=== PATIENT | female | born 1960 | race Caucasian/White ===

== ENCOUNTER 2021-04-15 10:55 | Day surgery (SDC) | payer OTHER ==
[2021-04-10 10:03] VITALS: BMI 25.4
[2021-04-15 12:06] VITALS: TEMP 97.8
[2021-04-15 12:28] VITALS: BP 116/74; PULSE 89
== END 2021-04-15 12:43 | disposition home or self-care (01) ==
LOC: FASU-ENDO 10:55
PROVIDERS: ATTEND Internal Medicine Gastroenterology
PROC: 0DJD8ZZ Inspection of Lower Intestinal Tract, Via Natural or Artificial Opening Endoscopic (ICD-10-PCS; principal; 2021-04-15 11:31)
DX: Z12.11 Encounter for screening for malignant neoplasm of colon (principal); K64.1 Second degree hemorrhoids; K57.30 Diverticulosis of large intestine without perforation or abscess without bleeding; I10 Essential (primary) hypertension

== ENCOUNTER 2023-05-10 17:00 | Inpatient (IN) | payer BC, OTHER ==
[2023-05-10 18:18] LABS: BASO % 1.2 % (0-2.0); EOS % 2.6 % (0-4.5); HEMATOCRIT 18.6 % (32.4-45.2); LYMPH % 13.6 % (8-40); MCH 30.2 pg (25.7-33.7); MCHC 33.3 g/dl (32.0-36.0); MEAN CELL VOLUME 90.8 fl (80-96); MONO % 7.2 % (3.8-10.2); NEUT % 75.4 % (42.8-82.8); PLATELET COUNT 224 10^3/uL (134-434); RBC 2.05 M/mm3 (3.60-5.2); RDW 13.3 % (11.6-15.6); WHITE BLOOD COUNT 4.8 K/mm3 (4.0-10.0)
[2023-05-10 18:26] LABS: INR 1.04 (0.83-1.09); PROTHROMBIN TIME (PATIENT) 12.1 SEC (9.7-13.0)
[2023-05-10 18:26] LABS: HEMOGLOBIN 6.2 GM/dL (10.7-15.3)
[2023-05-10 18:29] LABS: ACTIVATED PTT 32.5 SECONDS (25.2-36.5)
[2023-05-10 18:48] LABS: CHLORIDE 96 mmol/L (98-107); SODIUM 131 mmol/L (136-145)
[2023-05-10 18:51] LABS: ANION GAP 16 mmol/L (4-13); CALCIUM 9.1 mg/dL (8.5-10.1); CO2 18 mmol/L (21-32); GLUCOSE,RANDOM 126 mg/dL (74-106); MAGNESIUM 3.1 mg/dL (1.8-2.4)
[2023-05-10 18:54] LABS: PHOSPHOROUS 8.2 mg/dL (2.5-4.9); SGOT/AST 29 U/L (15-37); SGPT/ALT 36 U/L (13-61)
[2023-05-10 18:56] LABS: BILIRUBIN,TOTAL 0.7 mg/dL (0.2-1); TOT PROT 7.4 g/dl (6.4-8.2)
[2023-05-10 18:57] LABS: ALK PHOS 81 U/L (45-117)
[2023-05-10 19:49] LABS: BLOOD UREA NITROGEN 130.2 mg/dL (7-18); CREATININE 13.8 mg/dL (0.55-1.3)
[2023-05-10 20:48] LABS: CHLORIDE 97 mmol/L (98-107); SODIUM 132 mmol/L (136-145)
[2023-05-10 20:49] LABS: CALCIUM 8.7 mg/dL (8.5-10.1)
[2023-05-10 20:50] LABS: ANION GAP 15 mmol/L (4-13); CO2 20 mmol/L (21-32); GLUCOSE,RANDOM 101 mg/dL (74-106)
[2023-05-10 20:55] LABS: BLOOD UREA NITROGEN 134.6 mg/dL (7-18); CREATININE 14.1 mg/dL (0.55-1.3)
[2023-05-10] MEDS ORDERED: hydrALAZINE HCL 20 MG/ML VIAL IVPUSH ONE (20:58)
[2023-05-10 21:02] LABS: EPI CELLS 2 /uL (0-25.1); HYALINE CASTS 0 /uL (0-3.1); URINE APPEARANCE CLEAR; URINE BACTERIA 3 /uL (0-1359); URINE BILIRUBIN NEGATIVE (NEGATIVE); URINE COLOR YELLOW; URINE GLUCOSE (UA) TRACE (NEGATIVE); URINE KETONE NEGATIVE (NEGATIVE); URINE LEUK ESTERASE NEGATIVE (NEGATIVE); URINE NITRITE NEGATIVE (NEGATIVE); URINE PROTEIN 3+ (NEGATIVE); URINE RBC 44 /uL (0-23.9); URINE UROBILINOGEN 0.2 mg/dL (0.2-1.0); URINE WBC 3 /uL (0-25.8)
[2023-05-10] MEDS: HEPARIN NA (PORCINE) 5,000 UNITS/ML 1ML VIAL SQ SCH (21:26)
[2023-05-10] MEDS: CHLORHEXIDINE GLUCONATE 4% CLEANSER FOR DECOLONIZATION TP SCH (21:27)
[2023-05-10] MEDS: hydrALAZINE HCL 25 MG TABLET (FP) PO SCH (21:27)
[2023-05-10] MEDS: MUPIROCIN 2% TOPICAL OINTMENT FOR DECOLONIZATION NS SCH (21:27)
[2023-05-10] MEDS ORDERED: ACETAMINOPHEN 325 MG TABLET (FP) PO PRN (22:58)
[2023-05-11] MEDS ORDERED: MELATONIN 5 MG TABLETS PO ONE (01:06)
[2023-05-11 06:14] LABS: BASO % 1.1 % (0-2.0); EOS % 2.7 % (0-4.5); HEMATOCRIT 20.6 % (32.4-45.2); LYMPH % 14.6 % (8-40); MCH 30.4 pg (25.7-33.7); MCHC 33.7 g/dl (32.0-36.0); MEAN CELL VOLUME 90.3 fl (80-96); MEAN PLT VOLUME 8.5 fl (7.5-11.1); MONO % 8.5 % (3.8-10.2); NEUT % 73.1 % (42.8-82.8); PLATELET COUNT 199 10^3/uL (134-434); RBC 2.28 M/mm3 (3.60-5.2); RDW 13.2 % (11.6-15.6); WHITE BLOOD COUNT 4.8 K/mm3 (4.0-10.0)
[2023-05-11 06:24] LABS: HEMOGLOBIN 6.9 GM/dL (10.7-15.3); INR 1.06 (0.83-1.09); PROTHROMBIN TIME (PATIENT) 12.3 SEC (9.7-13.0)
[2023-05-11] MEDS ORDERED: SODIUM CHLORIDE 250 ML IV PRN (06:24)
[2023-05-11] MEDS: hydrALAZINE HCL 25 MG TABLET (FP) PO SCH ×3 (06:25→21:32)
[2023-05-11 06:27] LABS: ACTIVATED PTT 32.8 SECONDS (25.2-36.5); CHLORIDE 97 mmol/L (98-107); POTASSIUM 4.9 mmol/L (3.5-5.1); SODIUM 132 mmol/L (136-145)
[2023-05-11 06:29] LABS: CALCIUM 8.9 mg/dL (8.5-10.1)
[2023-05-11 06:30] LABS: ALBUMIN 3.7 g/dl (3.4-5.0); ANION GAP 17 mmol/L (4-13); CO2 18 mmol/L (21-32); GLUCOSE,RANDOM 98 mg/dL (74-106); MAGNESIUM 2.9 mg/dL (1.8-2.4)
[2023-05-11] MEDS ORDERED: guaiFENesin 200 MG/10 ML 10 ML UNIT-DOSE CUPS PO PRN (06:31)
[2023-05-11 06:32] LABS: SGPT/ALT 27 U/L (13-61)
[2023-05-11 06:33] LABS: PHOSPHOROUS 8.2 mg/dL (2.5-4.9); SGOT/AST 11 U/L (15-37)
[2023-05-11 06:34] LABS: BILIRUBIN,TOTAL 0.7 mg/dL (0.2-1); TOT PROT 6.5 g/dl (6.4-8.2)
[2023-05-11 06:35] LABS: ALK PHOS 78 U/L (45-117)
[2023-05-11 06:36] LABS: BLOOD UREA NITROGEN 132.2 mg/dL (7-18); CREATININE 13.9 mg/dL (0.55-1.3)
[2023-05-11] MEDS ORDERED: LOSARTAN POTASSIUM 25 MG TABLET PO ONE ×2 (08:16)
[2023-05-11] MEDS ORDERED: FUROSEMIDE 40 MG/4 ML INJECTABLE VIAL IVPUSH ONE (08:20)
[2023-05-11] MEDS ORDERED: guaiFENesin/D-METHORPHAN HB 10 ML UNIT-DOSE CUPS PO PRN (08:28)
[2023-05-11] MEDS: MUPIROCIN 2% TOPICAL OINTMENT FOR DECOLONIZATION NS SCH ×2 (10:10→21:33)
[2023-05-11] MEDS ORDERED: MIDAZOLAM HCL 2 MG/2 ML SINGLE DOSE VIAL IVPUSH ONE (10:56)
[2023-05-11] MEDS ORDERED: FENTANYL CITRATE/PF 50 MCG/ML VIAL IVPUSH ONE (11:00)
[2023-05-11] MEDS: HEPARIN NA (PORCINE) 5,000 UNITS/ML 1ML VIAL SQ SCH ×2 (12:25→21:31)
[2023-05-11] MEDS ORDERED: ACETAMINOPHEN 325 MG TABLET (FP) PO PRN (13:20)
[2023-05-11] MEDS ORDERED: ACETAMINOPHEN 1000 MG/100 ML BAG IVPB ONE (15:13)
[2023-05-11] MEDS: SEVELAMER CARBONATE 800 MG TAB (FP) PO SCH (17:51)
[2023-05-11] MEDS: CHLORHEXIDINE GLUCONATE 4% CLEANSER FOR DECOLONIZATION TP SCH (21:33)
[2023-05-12] MEDS: hydrALAZINE HCL 25 MG TABLET (FP) PO SCH ×3 (06:31→21:06)
[2023-05-12 07:03] LABS: HEMATOCRIT 24.3 % (32.4-45.2); HEMOGLOBIN 8.2 GM/dL (10.7-15.3); MCH 30.1 pg (25.7-33.7); MCHC 33.7 g/dl (32.0-36.0); MEAN CELL VOLUME 89.4 fl (80-96); MEAN PLT VOLUME 8.8 fl (7.5-11.1); PLATELET COUNT 176 10^3/uL (134-434); RBC 2.72 M/mm3 (3.60-5.2); RDW 13.5 % (11.6-15.6); WHITE BLOOD COUNT 4.7 K/mm3 (4.0-10.0)
[2023-05-12 07:16] LABS: CHLORIDE 99 mmol/L (98-107); POTASSIUM 4.1 mmol/L (3.5-5.1); SODIUM 136 mmol/L (136-145)
[2023-05-12 07:26] LABS: CALCIUM 8.2 mg/dL (8.5-10.1)
[2023-05-12 07:27] LABS: ALBUMIN 3.4 g/dl (3.4-5.0); ANION GAP 11 mmol/L (4-13); CO2 26 mmol/L (21-32); GLUCOSE,RANDOM 86 mg/dL (74-106); MAGNESIUM 2.5 mg/dL (1.8-2.4)
[2023-05-12 07:30] LABS: PHOSPHOROUS 6.6 mg/dL (2.5-4.9)
[2023-05-12 07:31] LABS: BILIRUBIN,TOTAL 0.5 mg/dL (0.2-1)
[2023-05-12 07:32] LABS: ALK PHOS 85 U/L (45-117)
[2023-05-12 07:33] LABS: SGOT/AST 13 U/L (15-37); SGPT/ALT 27 U/L (13-61)
[2023-05-12 07:38] LABS: CREATININE 9.4 mg/dL (0.55-1.3)
[2023-05-12] MEDS ORDERED: hydrALAZINE HCL 20 MG/ML VIAL IVPUSH ONE (08:17)
[2023-05-12] MEDS ORDERED: hydrALAZINE HCL 20 MG/ML VIAL ONE (08:27)
[2023-05-12] MEDS: SEVELAMER CARBONATE 800 MG TAB (FP) PO SCH ×3 (09:11→18:07)
[2023-05-12] MEDS ORDERED: ACETAMINOPHEN 1000 MG/100 ML BAG IVPB ONE (10:25)
[2023-05-12] MEDS ORDERED: ACETAMINOPHEN INJECTION 100 ML IVPB ONE (10:26)
[2023-05-12] MEDS ORDERED: ceFAZolin SODIUM 1 GM VIAL IVPB ONE ×2 (10:31→12:07)
[2023-05-12] MEDS ORDERED: HEPARIN NA (PORCINE) 5,000 UNITS/ML 1ML VIAL SQ ONE ×2 (10:33→12:10)
[2023-05-12] MEDS: MUPIROCIN 2% TOPICAL OINTMENT FOR DECOLONIZATION NS SCH ×2 (10:35→21:07)
[2023-05-12] MEDS ORDERED: LIDOCAINE HCL 1%, 10 MG/ML (20ML VIAL) ONE (11:21)
[2023-05-12] MEDS ORDERED: HEPARIN NA (PORCINE) 5,000 UNITS/ML 1ML VIAL ONE (11:30)
[2023-05-12] MEDS ORDERED: ONDANSETRON 4 MG/2 ML VIAL IVPUSH PRN (11:47)
[2023-05-12] MEDS ORDERED: MIDAZOLAM HCL 2 MG/2 ML SINGLE DOSE VIAL ONE (11:54)
[2023-05-12] MEDS ORDERED: FENTANYL CITRATE/PF 50 MCG/ML VIAL ONE ×2 (11:54→12:12)
[2023-05-12] MEDS ORDERED: LACTATED RINGERS SOLUTION 1,000 ML IV SCH (12:00)
[2023-05-12] MEDS ORDERED: ceFAZolin SODIUM 1 GM VIAL ONE (12:07)
[2023-05-12] MEDS ORDERED: LIDOCAINE HCL 1%, 10 MG/ML (20ML VIAL) INF ONE (12:09)
[2023-05-12] MEDS: HEPARIN NA (PORCINE) 5,000 UNITS/ML 1ML VIAL SQ SCH ×2 (12:45→21:07)
[2023-05-12 14:50] VITALS: BMI 24.0
[2023-05-12] MEDS ORDERED: SODIUM CHLORIDE 250 ML IV PRN (16:20)
[2023-05-12] MEDS: oxyCODONE HCL 5 MG TABLET PO PRN (21:06)
[2023-05-12] MEDS: CHLORHEXIDINE GLUCONATE 4% CLEANSER FOR DECOLONIZATION TP SCH (21:07)
[2023-05-13] MEDS: hydrALAZINE HCL 25 MG TABLET (FP) PO SCH ×3 (05:25→22:26)
[2023-05-13] MEDS: oxyCODONE HCL 5 MG TABLET PO PRN (05:27)
[2023-05-13] MEDS ORDERED: oxyCODONE HCL 5 MG TABLET PO PRN (07:21)
[2023-05-13] MEDS ORDERED: SODIUM CHLORIDE 250 ML IV PRN (07:21)
[2023-05-13] MEDS ORDERED: guaiFENesin/D-METHORPHAN HB 10 ML UNIT-DOSE CUPS PO PRN (07:21)
[2023-05-13] MEDS: SEVELAMER CARBONATE 800 MG TAB (FP) PO SCH ×3 (09:05→16:45)
[2023-05-13 09:11] LABS: HEMOGLOBIN 8.5 GM/dL (10.7-15.3); MCH 30.1 pg (25.7-33.7); MEAN CELL VOLUME 88.7 fl (80-96); MEAN PLT VOLUME 9.1 fl (7.5-11.1); PLATELET COUNT 171 10^3/uL (134-434); RBC 2.82 M/mm3 (3.60-5.2); RDW 13.7 % (11.6-15.6); WHITE BLOOD COUNT 5.4 K/mm3 (4.0-10.0)
[2023-05-13 09:21] LABS: CHLORIDE 97 mmol/L (98-107); POTASSIUM 4.1 mmol/L (3.5-5.1); SODIUM 131 mmol/L (136-145)
[2023-05-13 09:38] LABS: ALBUMIN 3.4 g/dl (3.4-5.0); BLOOD UREA NITROGEN 81.3 mg/dL (7-18); CALCIUM 8.7 mg/dL (8.5-10.1)
[2023-05-13 09:39] LABS: ANION GAP 11 mmol/L (4-13); CO2 23 mmol/L (21-32); GLUCOSE,RANDOM 85 mg/dL (74-106); MAGNESIUM 2.5 mg/dL (1.8-2.4)
[2023-05-13 09:40] LABS: CREATININE 10.5 mg/dL (0.55-1.3); SGPT/ALT 15 U/L (13-61)
[2023-05-13 09:41] LABS: PHOSPHOROUS 6.8 mg/dL (2.5-4.9)
[2023-05-13 09:42] LABS: SGOT/AST 14 U/L (15-37); TOT PROT 6.7 g/dl (6.4-8.2)
[2023-05-13 09:43] LABS: BILIRUBIN,TOTAL 0.4 mg/dL (0.2-1)
[2023-05-13 09:44] LABS: ALK PHOS 103 U/L (45-117)
[2023-05-13] MEDS ORDERED: MUPIROCIN 2% TOPICAL OINTMENT FOR DECOLONIZATION NS SCH (10:00)
[2023-05-13] MEDS ORDERED: VITAMIN B COMP W-C 1 EA TABLET (NEPHRO-VITE) PO SCH (10:00)
[2023-05-13 11:15] VITALS: RESP 18
[2023-05-13] MEDS: VITAMIN B COMP W-C 1 EA TABLET (NEPHRO-VITE) PO SCH (11:25)
[2023-05-13] MEDS: HEPARIN NA (PORCINE) 5,000 UNITS/ML 1ML VIAL SQ SCH ×2 (11:44→22:26)
[2023-05-13] MEDS: ACETAMINOPHEN 325 MG TABLET (FP) PO PRN ×2 (14:18→22:27)
[2023-05-13] MEDS: amLODIPine BESYLATE 5 MG TABLET (FP) PO SCH (16:45)
[2023-05-13] MEDS ORDERED: CHLORHEXIDINE GLUCONATE 4% CLEANSER FOR DECOLONIZATION TP SCH (22:00)
[2023-05-14] MEDS: hydrALAZINE HCL 25 MG TABLET (FP) PO SCH (06:26)
[2023-05-14] MEDS: SEVELAMER CARBONATE 800 MG TAB (FP) PO SCH ×2 (08:41→12:18)
[2023-05-14] MEDS: VITAMIN B COMP W-C 1 EA TABLET (NEPHRO-VITE) PO SCH (09:39)
[2023-05-14] MEDS: amLODIPine BESYLATE 5 MG TABLET (FP) PO SCH (09:39)
[2023-05-14] MEDS: HEPARIN NA (PORCINE) 5,000 UNITS/ML 1ML VIAL SQ SCH (09:41)
[2023-05-14 11:37] VITALS: BP 150/82; PULSE 94; TEMP 98.2
== END 2023-05-14 13:15 | disposition home or self-care (01) | DRG 682 ==
LOC: JER 17:00 → JERBED 18:38 → JICU 20:34 → J5S 05-12 21:22
PROVIDERS: ADMIT Internal Medicine Pulmonary Disease; ATTEND Internal Medicine
PROC: 05HM33Z Insertion of Infusion Device into Right Internal Jugular Vein, Percutaneous Approach (ICD-10-PCS; principal; 2023-05-11)
PROC: 5A1D70Z Performance of Urinary Filtration, Intermittent, Less than 6 Hours Per Day (ICD-10-PCS; 2023-05-11)
PROC: 5A1D70Z Performance of Urinary Filtration, Intermittent, Less than 6 Hours Per Day (ICD-10-PCS; 2023-05-11)
PROC: 30233N1 Transfusion of Nonautologous Red Blood Cells into Peripheral Vein, Percutaneous Approach (ICD-10-PCS; 2023-05-11)
PROC: 05HM33Z Insertion of Infusion Device into Right Internal Jugular Vein, Percutaneous Approach (ICD-10-PCS; 2023-05-12)
PROC: B543ZZA Ultrasonography of Right Jugular Veins, Guidance (ICD-10-PCS; 2023-05-12)
DX: I12.0 Hypertensive chronic kidney disease with stage 5 chronic kidney disease or end stage renal disease (principal); N18.6 End stage renal disease; N17.9 Acute kidney failure, unspecified; E87.5 Hyperkalemia; D63.1 Anemia in chronic kidney disease; Z99.2 Dependence on renal dialysis
CPT/HCPCS: 0241U-QW; 36415; 36430; 71045-TC-FY; 80048; 80053; 81003; 82550; 82553; 82962; 83735; 83880; 84100; 84443; 84484; 85025; 85027; 85610; 85730; 86704; 86708; 86803; 86850; 86900; 86901; 86922; 87086; 87340; 87517; 93005; 93010; 93306-TC; 99285-25; C1750; J1644; P9058

== ENCOUNTER 2023-05-24 18:33 | Observation (INO) | payer BC ==
[2023-05-24 18:38] VITALS: BMI 24.0
[2023-05-24 20:05] LABS: BASO % 1.2 % (0-2.0); EOS % 5.1 % (0-4.5); HEMATOCRIT 21.4 % (32.4-45.2); HEMOGLOBIN 7.2 GM/dL (10.7-15.3); LYMPH % 20.5 % (8-40); MCH 29.7 pg (25.7-33.7); MCHC 33.8 g/dl (32.0-36.0); MEAN PLT VOLUME 6.4 fl (7.5-11.1); MONO % 12.2 % (3.8-10.2); PLATELET COUNT 142 10^3/uL (134-434); RBC 2.43 M/mm3 (3.60-5.2); RDW 13.4 % (11.6-15.6); RETICULOCYTES 0.54 % (0.5-1.5); WHITE BLOOD COUNT 4.9 K/mm3 (4.0-10.0)
[2023-05-24 20:06] LABS: INR 1.04 (0.83-1.09); PROTHROMBIN TIME (PATIENT) 12.1 SEC (9.7-13.0)
[2023-05-24 20:09] LABS: ACTIVATED PTT 32.7 SECONDS (25.2-36.5)
[2023-05-24 20:29] LABS: POTASSIUM 4.1 mmol/L (3.5-5.1)
[2023-05-24 20:30] LABS: CALCIUM 8.2 mg/dL (8.5-10.1)
[2023-05-24 20:31] LABS: ALBUMIN 3.6 g/dl (3.4-5.0)
[2023-05-24 20:34] LABS: CREATININE 3.9 mg/dL (0.55-1.3)
[2023-05-24 20:36] LABS: BILIRUBIN,TOTAL 0.4 mg/dL (0.2-1); TOT PROT 6.4 g/dl (6.4-8.2)
[2023-05-24 20:49] LABS: BLOOD UREA NITROGEN 20.5 mg/dL (7-18)
[2023-05-24] MEDS ORDERED: hydrALAZINE HCL 10 MG TABLET PO ONE (21:27)
[2023-05-24] MEDS ORDERED: hydrALAZINE HCL 10 MG TABLET ONE (21:31)
[2023-05-24 22:29] VITALS: RESP 18
[2023-05-25] MEDS ORDERED: ACETAMINOPHEN 325 MG TABLET (FP) PO STA (01:34)
[2023-05-25] MEDS ORDERED: ACETAMINOPHEN 325 MG TABLET (FP) ONE (01:45)
[2023-05-25] MEDS ORDERED: DOCUSATE SODIUM 100 MG CAPSULE (FP) PO PRN (07:18)
[2023-05-25] MEDS ORDERED: ACETAMINOPHEN 325 MG TABLET (FP) PO PRN (07:18)
[2023-05-25] MEDS ORDERED: VITAMIN B COMP W-C 1 EA TABLET (NEPHRO-VITE) PO SCH (10:00)
[2023-05-25] MEDS ORDERED: amLODIPine BESYLATE 10 MG TABLET (FP) PO SCH (10:00)
[2023-05-25 10:53] LABS: BASO % 1.2 % (0-2.0); EOS % 5.5 % (0-4.5); HEMATOCRIT 25.4 % (32.4-45.2); HEMOGLOBIN 8.4 GM/dL (10.7-15.3); LYMPH % 18.6 % (8-40); MCH 29.6 pg (25.7-33.7); MCHC 33.3 g/dl (32.0-36.0); MEAN CELL VOLUME 88.9 fl (80-96); MEAN PLT VOLUME 6.9 fl (7.5-11.1); MONO % 11.7 % (3.8-10.2); PLATELET COUNT 138 10^3/uL (134-434); RBC 2.85 M/mm3 (3.60-5.2); RDW 13.4 % (11.6-15.6); WHITE BLOOD COUNT 4.4 K/mm3 (4.0-10.0)
[2023-05-25 11:31] LABS: POTASSIUM 4.4 mmol/L (3.5-5.1)
[2023-05-25 11:35] LABS: CALCIUM 8.6 mg/dL (8.5-10.1)
[2023-05-25 11:36] LABS: BLOOD UREA NITROGEN 27.4 mg/dL (7-18); MAGNESIUM 2.2 mg/dL (1.8-2.4)
[2023-05-25 11:39] LABS: CREATININE 5.5 mg/dL (0.55-1.3)
[2023-05-25] MEDS ORDERED: SEVELAMER CARBONATE 800 MG TAB (FP) PO SCH (12:00)
[2023-05-25] MEDS ORDERED: EPOETIN ALFA-EPBX 10,000 UNIT/ML VIAL IVPUSH ONE (13:20)
[2023-05-25] MEDS ORDERED: guaiFENesin 200 MG/10 ML 10 ML UNIT-DOSE CUPS PO PRN (13:39)
[2023-05-25] MEDS ORDERED: hydrALAZINE HCL 25 MG TABLET (FP) PO SCH ×2 (14:00)
[2023-05-25 14:09] VITALS: BP 146/86; PULSE 90; TEMP 98.8
[2023-05-25] MEDS ORDERED: EPOETIN ALFA-EPBX 10,000 UNIT/ML VIAL SQ ONE (15:00)
[2023-05-25] MEDS ORDERED: ROSUVASTATIN CA 10 MG TABLET PO SCH (22:00)
== END 2023-05-25 16:13 | disposition home or self-care (01) ==
LOC: JER 18:33 → JERBED 21:04 → J5S 05-25 03:06
PROVIDERS: ADMIT Internal Medicine; ATTEND Internal Medicine
PROC: 3E023GC Introduction of Other Therapeutic Substance into Muscle, Percutaneous Approach (ICD-10-PCS; principal; 2023-05-24)
DX: I12.0 Hypertensive chronic kidney disease with stage 5 chronic kidney disease or end stage renal disease (principal); D64.9 Anemia, unspecified; N18.6 End stage renal disease; Z99.2 Dependence on renal dialysis
CPT/HCPCS: 36415; 36430; 71045-TC-FY; 80048; 80053; 83735; 84100; 85025; 85045; 85610; 85730; 86850; 86900; 86901; 86922; 93005; 93010; 99285-25; G0378; P9058; Q5106

== ENCOUNTER 2023-07-07 04:12 | Day surgery (SDC) | payer BC ==
[2023-07-06 09:30] VITALS: BMI 23.4
[~2023-07-07 04:12] MED LIST: LIDOCAINE HCL 1%, 10 MG/ML (20ML VIAL) INF ONE
[2023-07-07] MEDS ORDERED: HEPARIN NA (PORCINE) 5,000 UNITS/ML 1ML VIAL ONE ×2 (10:12→12:43)
[2023-07-07] MEDS ORDERED: LIDOCAINE HCL 1%, 10 MG/ML (20ML VIAL) ONE (10:12)
[2023-07-07] MEDS ORDERED: PROPOFOL 80 ML ONE (11:32)
[2023-07-07] MEDS ORDERED: MIDAZOLAM HCL 2 MG/2 ML SINGLE DOSE VIAL ONE (11:32)
[2023-07-07] MEDS ORDERED: LIDOCAINE HCL/PF 2% SDV 5ML VIAL ONE (11:32)
[2023-07-07] MEDS ORDERED: ceFAZolin SODIUM 1 GM VIAL ONE (12:05)
[2023-07-07] MEDS ORDERED: ceFAZolin SODIUM 1 GM VIAL IVPB ONE (12:10)
[2023-07-07] MEDS ORDERED: LIDOCAINE HCL 1%, 10 MG/ML (20ML VIAL) INF ONE (12:20)
[2023-07-07] MEDS ORDERED: PROPOFOL 20 ML ONE (13:07)
[2023-07-07] MEDS ORDERED: ONDANSETRON 4 MG/2 ML VIAL ONE (13:15)
[2023-07-07] MEDS ORDERED: oxyCODONE HCL 5 MG TABLET PO PRN ×2 (13:26)
[2023-07-07] MEDS ORDERED: PROMETHAZINE HCL 25 MG/1 ML VIAL IVPB PRN (13:26)
[2023-07-07] MEDS ORDERED: ONDANSETRON 4 MG/2 ML VIAL IVPUSH PRN (13:26)
[2023-07-07] MEDS ORDERED: LACTATED RINGERS SOLUTION 1,000 ML IV SCH (13:30)
[2023-07-07] MEDS ORDERED: oxyCODONE HCL 5 MG TABLET ONE (15:23)
[2023-07-07 17:47] VITALS: BP 149/85; PULSE 92; RESP 20; TEMP 98.2
== END 2023-07-07 17:15 | disposition home or self-care (01) ==
LOC: JASU-SURG 04:12
PROVIDERS: ATTEND Surgery Vascular Surgery
PROC: 03L80ZZ Occlusion of Left Brachial Artery, Open Approach (ICD-10-PCS; principal; 2023-07-07 11:00)
DX: T82.898A Other specified complication of vascular prosthetic devices, implants and grafts, initial encounter (principal); I12.0 Hypertensive chronic kidney disease with stage 5 chronic kidney disease or end stage renal disease; N18.6 End stage renal disease; Z99.2 Dependence on renal dialysis
CPT/HCPCS: 36415; 84132; 94760; J1644

== ENCOUNTER 2023-07-14 03:46 | Day surgery (SDC) | payer BC ==
[2023-07-13 18:37] VITALS: BMI 23.4
[2023-07-14] MEDS ORDERED: HEPARIN NA (PORCINE) 5,000 UNITS/ML 1ML VIAL ONE (10:28)
[2023-07-14] MEDS ORDERED: LIDOCAINE HCL 1%, 10 MG/ML (20ML VIAL) ONE ×2 (10:28→10:29)
[2023-07-14] MEDS ORDERED: POVIDONE-IODINE OINTMENT 10% - 28.4 GM TUBE ONE (10:28)
[2023-07-14] MEDS ORDERED: PROPOFOL 20 ML ONE (11:01)
[2023-07-14] MEDS ORDERED: MIDAZOLAM HCL 2 MG/2 ML SINGLE DOSE VIAL ONE (11:01)
[2023-07-14] MEDS ORDERED: LIDOCAINE HCL/PF 2% SDV 5ML VIAL ONE (11:09)
[2023-07-14] MEDS ORDERED: ceFAZolin SODIUM 1 GM VIAL ONE (11:11)
[2023-07-14] MEDS ORDERED: ceFAZolin SODIUM 1 GM VIAL IVPB ONE (11:12)
[2023-07-14] MEDS ORDERED: LIDOCAINE HCL 1%, 10 MG/ML (20ML VIAL) ID ONE (11:17)
[2023-07-14] MEDS ORDERED: ONDANSETRON 4 MG/2 ML VIAL IVPUSH PRN (11:22)
[2023-07-14] MEDS ORDERED: oxyCODONE HCL 5 MG TABLET PO PRN ×2 (11:22)
[2023-07-14] MEDS ORDERED: ACETAMINOPHEN 1000 MG/100 ML BAG IVPB PRN (11:22)
[2023-07-14] MEDS ORDERED: PROMETHAZINE HCL 25 MG/1 ML VIAL IVPB PRN (11:22)
[2023-07-14] MEDS ORDERED: SODIUM CHLORIDE 1,000 ML IV SCH (11:30)
[2023-07-14] MEDS ORDERED: oxyCODONE HCL 5 MG TABLET ONE (13:19)
[2023-07-14 13:39] VITALS: RESP 20; TEMP 97.7
[2023-07-14 13:41] VITALS: BP 145/87; PULSE 80
== END 2023-07-14 13:48 | disposition home or self-care (01) ==
LOC: JASU-SURG 03:46
PROVIDERS: ATTEND Surgery Vascular Surgery
PROC: 03L80ZZ Occlusion of Left Brachial Artery, Open Approach (ICD-10-PCS; principal; 2023-07-14 11:00)
DX: T82.898A Other specified complication of vascular prosthetic devices, implants and grafts, initial encounter (principal); Y83.2 Surgical operation with anastomosis, bypass or graft as the cause of abnormal reaction of the patient, or of later complication, without mention of misadventure at the time of the procedure
CPT/HCPCS: 36415; 84132; 94760; J1644

== ENCOUNTER 2023-09-05 17:12 | Inpatient (IN) | payer BC ==
[2023-09-05 17:21] VITALS: BMI 23.6
[2023-09-05 18:44] LABS: BASO % 1.2 % (0-2.0); EOS % 7.1 % (0-4.5); HEMATOCRIT 39.3 % (32.4-45.2); HEMOGLOBIN 12.8 GM/dL (10.7-15.3); MCH 28.9 pg (25.7-33.7); MCHC 32.7 g/dl (32.0-36.0); MEAN CELL VOLUME 88.4 fl (80-96); MEAN PLT VOLUME 7.8 fl (7.5-11.1); MONO % 9.9 % (3.8-10.2); NEUT % 65.8 % (42.8-82.8); PLATELET COUNT 193 10^3/uL (134-434); RBC 4.44 M/mm3 (3.60-5.2); RDW 18.8 % (11.6-15.6); WHITE BLOOD COUNT 6.7 K/mm3 (4.0-10.0)
[2023-09-05 18:52] LABS: INR 1.02 (0.83-1.09); PROTHROMBIN TIME (PATIENT) 11.8 SEC (9.7-13.0)
[2023-09-05 18:55] LABS: ACTIVATED PTT 32.5 SECONDS (25.2-36.5)
[2023-09-05 18:58] LABS: CHLORIDE 105 mmol/L (98-107); POTASSIUM 5.3 mmol/L (3.5-5.1); SODIUM 139 mmol/L (136-145)
[2023-09-05 19:02] LABS: CALCIUM 9.3 mg/dL (8.5-10.1)
[2023-09-05 19:03] LABS: ALBUMIN 3.6 g/dl (3.4-5.0); ANION GAP 10 mmol/L (4-13); BLOOD UREA NITROGEN 42.2 mg/dL (7-18); CO2 24 mmol/L (21-32); GLUCOSE,RANDOM 125 mg/dL (74-106)
[2023-09-05 19:04] LABS: MAGNESIUM 2.7 mg/dL (1.8-2.4)
[2023-09-05 19:06] LABS: SGOT/AST 29 U/L (15-37); SGPT/ALT 28 U/L (13-61)
[2023-09-05 19:07] LABS: TOT PROT 6.7 g/dl (6.4-8.2)
[2023-09-05 19:08] LABS: BILIRUBIN,TOTAL 0.5 mg/dL (0.2-1)
[2023-09-05 19:09] LABS: ALK PHOS 106 U/L (45-117)
[2023-09-05 19:59] LABS: CREATININE 8.8 mg/dL (0.55-1.3)
[2023-09-05] MEDS ORDERED: ASPIRIN 81 MG CHEWABLE TABLETS ONE (19:59)
[2023-09-05] MEDS: ASPIRIN 81 MG CHEWABLE TABLETS PO ONE (20:17)
[2023-09-05] MEDS ORDERED: FUROSEMIDE 40 MG/4 ML INJECTABLE VIAL ONE (20:23)
[2023-09-05] MEDS ORDERED: LOSARTAN POTASSIUM 50 MG TABLET ONE (20:23)
[2023-09-05] MEDS ORDERED: HYDROCHLOROTHIAZIDE 25 MG TABLET (FP) ONE ×2 (20:23→20:28)
[2023-09-05] MEDS: HYDROCHLOROTHIAZIDE 50 MG TABLET PO ONE (20:29)
[2023-09-05] MEDS: FUROSEMIDE 40 MG/4 ML INJECTABLE VIAL IVPUSH ONE (20:29)
[2023-09-05] MEDS: LOSARTAN POTASSIUM 50 MG TABLET PO ONE (20:29)
[2023-09-05] MEDS ORDERED: hydrALAZINE HCL 25 MG TABLET (FP) ONE (23:41)
[2023-09-05] MEDS: hydrALAZINE HCL 25 MG TABLET (FP) PO ONE (23:45)
[2023-09-06] MEDS ORDERED: hydrALAZINE HCL 50 MG TABLET (FP) ONE (06:06)
[2023-09-06] MEDS: hydrALAZINE HCL 25 MG TABLET (FP) PO SCH (06:29)
[2023-09-06 07:43] LABS: BASO % 1.4 % (0-2.0); EOS % 7.2 % (0-4.5); HEMATOCRIT 40.4 % (32.4-45.2); HEMOGLOBIN 13.4 GM/dL (10.7-15.3); LYMPH % 17.1 % (8-40); MCH 29.3 pg (25.7-33.7); MCHC 33.1 g/dl (32.0-36.0); MEAN CELL VOLUME 88.6 fl (80-96); NEUT % 66.3 % (42.8-82.8); PLATELET COUNT 205 10^3/uL (134-434); RBC 4.56 M/mm3 (3.60-5.2); RDW 19.4 % (11.6-15.6); WHITE BLOOD COUNT 7.4 K/mm3 (4.0-10.0)
[2023-09-06] MEDS ORDERED: SEVELAMER CARBONATE 800 MG TAB (FP) ONE (08:01)
[2023-09-06] MEDS: SEVELAMER CARBONATE 800 MG TAB (FP) PO SCH (08:03)
[2023-09-06] MEDS: VITAMIN B COMP W-C 1 EA TABLET (NEPHRO-VITE) PO SCH (09:37)
[2023-09-06] MEDS: amLODIPine BESYLATE 10 MG TABLET (FP) PO SCH (09:37)
[2023-09-06] MEDS: LOSARTAN POTASSIUM 50 MG TABLET PO SCH (09:38)
[2023-09-06 09:45] LABS: ALBUMIN 3.9 g/dl (3.4-5.0); ALK PHOS 103 U/L (45-117); ANION GAP 12 mmol/L (4-13); BILIRUBIN,TOTAL 0.6 mg/dL (0.2-1); BLOOD UREA NITROGEN 46.2 mg/dL (7-18); CALCIUM 9.8 mg/dL (8.5-10.1); CHLORIDE 104 mmol/L (98-107); CO2 21 mmol/L (21-32); CREATININE 9.4 mg/dL (0.55-1.3); GLUCOSE,RANDOM 103 mg/dL (74-106); POTASSIUM 5.2 mmol/L (3.5-5.1); SGOT/AST 27 U/L (15-37); SGPT/ALT 30 U/L (13-61); SODIUM 137 mmol/L (136-145); TOT PROT 6.8 g/dl (6.4-8.2)
[2023-09-06] MEDS ORDERED: SODIUM CHLORIDE 250 ML IV PRN (10:32)
[2023-09-06] MEDS: hydrALAZINE HCL 50 MG TABLET (FP) PO SCH (16:10)
[2023-09-06] MEDS: ROSUVASTATIN CA 10 MG TABLET PO SCH (22:17)
[2023-09-06] MEDS: HEPARIN NA (PORCINE) 5,000 UNITS/ML 1ML VIAL SQ SCH (22:21)
[2023-09-06] MEDS: ACETAMINOPHEN 325 MG TABLET (FP) PO PRN (23:01)
[2023-09-07 01:41] VITALS: RESP 18
[2023-09-07 07:09] LABS: HEMATOCRIT 37.5 % (32.4-45.2); HEMOGLOBIN 11.9 GM/dL (10.7-15.3); MCH 28.5 pg (25.7-33.7); MCHC 31.7 g/dl (32.0-36.0); MEAN CELL VOLUME 89.9 fl (80-96); MEAN PLT VOLUME 8.2 fl (7.5-11.1); PLATELET COUNT 172 10^3/uL (134-434); RBC 4.17 M/mm3 (3.60-5.2); RDW 18.5 % (11.6-15.6); WHITE BLOOD COUNT 5.1 K/mm3 (4.0-10.0)
[2023-09-07 07:29] LABS: POTASSIUM 4.4 mmol/L (3.5-5.1)
[2023-09-07 07:33] LABS: BLOOD UREA NITROGEN 22.9 mg/dL (7-18)
[2023-09-07 07:36] LABS: BILIRUBIN,TOTAL 0.4 mg/dL (0.2-1); CREATININE 6.3 mg/dL (0.55-1.3); TOT PROT 5.5 g/dl (6.4-8.2)
[2023-09-07 07:57] LABS: ALBUMIN 3.1 g/dl (3.4-5.0); CALCIUM 8.2 mg/dL (8.5-10.1)
[2023-09-07] MEDS: LOSARTAN POTASSIUM 50 MG TABLET PO SCH (11:10)
[2023-09-07] MEDS ORDERED: ALBUTEROL SO4 0.083% IH SOL 2.5 MG/3 ML VIAL.NEB. NEB PRN (12:06)
[2023-09-08] MEDS ORDERED: SODIUM CHLORIDE 250 ML IV PRN (10:48)
[2023-09-08 10:50] LABS: HEMATOCRIT 35.2 % (32.4-45.2); HEMOGLOBIN 11.7 GM/dL (10.7-15.3); MCH 29.3 pg (25.7-33.7); MCHC 33.3 g/dl (32.0-36.0); MEAN CELL VOLUME 88.2 fl (80-96); MEAN PLT VOLUME 8.4 fl (7.5-11.1); PLATELET COUNT 173 10^3/uL (134-434); RBC 3.99 M/mm3 (3.60-5.2); WHITE BLOOD COUNT 4.4 K/mm3 (4.0-10.0)
[2023-09-08 11:25] LABS: CHLORIDE 101 mmol/L (98-107); POTASSIUM 4.2 mmol/L (3.5-5.1); SODIUM 134 mmol/L (136-145)
[2023-09-08 11:31] LABS: ALBUMIN 3.4 g/dl (3.4-5.0); ANION GAP 6 mmol/L (4-13); BLOOD UREA NITROGEN 37.2 mg/dL (7-18); CO2 27 mmol/L (21-32); GLUCOSE,RANDOM 166 mg/dL (74-106)
[2023-09-08 11:34] LABS: SGOT/AST 24 U/L (15-37); SGPT/ALT 24 U/L (13-61)
[2023-09-08 11:35] LABS: BILIRUBIN,TOTAL 0.4 mg/dL (0.2-1); TOT PROT 5.9 g/dl (6.4-8.2)
[2023-09-08 11:37] LABS: ALK PHOS 85 U/L (45-117)
[2023-09-08] MEDS: HEPARIN NA (PORCINE) 5,000 UNITS/ML 1ML VIAL IVPUSH ONE (12:22)
[2023-09-08 15:40] VITALS: BP 139/93; PULSE 96; TEMP 98.6
== END 2023-09-08 18:15 | disposition home or self-care (01) | DRG 291 ==
LOC: JER 17:12 → JERBED 23:14 → J4S 09-06 08:43 → OBSVTOIN 09-06 10:00
PROVIDERS: ADMIT Internal Medicine; ATTEND Internal Medicine
PROC: 5A1D70Z Performance of Urinary Filtration, Intermittent, Less than 6 Hours Per Day (ICD-10-PCS; principal; 2023-09-06)
PROC: 5A1D70Z Performance of Urinary Filtration, Intermittent, Less than 6 Hours Per Day (ICD-10-PCS; 2023-09-08)
DX: I13.2 Hypertensive heart and chronic kidney disease with heart failure and with stage 5 chronic kidney disease, or end stage renal disease (principal); I50.33 Acute on chronic diastolic (congestive) heart failure; N18.6 End stage renal disease; I16.1 Hypertensive emergency; J81.1 Chronic pulmonary edema; R79.89 Other specified abnormal findings of blood chemistry; R09.02 Hypoxemia; D64.9 Anemia, unspecified; E87.5 Hyperkalemia; E78.5 Hyperlipidemia, unspecified; E87.70 Fluid overload, unspecified; Q68.8 Other specified congenital musculoskeletal deformities; Z99.2 Dependence on renal dialysis
CPT/HCPCS: 0241U-QW; 36415; 71045-TC-FY; 80053; 82550; 82553; 83735; 83880; 84484; 85025; 85027; 85379; 85610; 85730; 86704; 86803; 87340; 93005; 93010; 93306-TC; 99285-25; G0378; J1644

== ENCOUNTER 2024-02-27 18:44 | Inpatient (IN) | payer BC ==
[2024-02-27 18:53] VITALS: BMI 23.4
[2024-02-27] MEDS ORDERED: ACETAMINOPHEN INJECTION 100 ML ONE (19:32)
[2024-02-27] MEDS ORDERED: ONDANSETRON 4 MG/2 ML VIAL ONE (19:32)
[2024-02-27] MEDS: ACETAMINOPHEN 1000 MG/100 ML BAG IVPB ONE (19:36)
[2024-02-27] MEDS: ONDANSETRON 4 MG/2 ML VIAL IVPUSH ONE (19:36)
[2024-02-27 19:45] LABS: HEMATOCRIT 36.5 % (32.4-45.2); HEMOGLOBIN 12.4 GM/dL (10.7-15.3); MCHC 33.9 g/dl (32.0-36.0); MEAN CELL VOLUME 94.2 fl (80-96); MEAN PLT VOLUME 8.9 fl (7.5-11.1); PLATELET COUNT 118 10^3/uL (134-434); RBC 3.87 M/mm3 (3.60-5.2); RDW 15.5 % (11.6-15.6); WHITE BLOOD COUNT 5.4 K/mm3 (4.0-10.0)
[2024-02-27 20:05] LABS: CHLORIDE 96 mmol/L (98-107); POTASSIUM 4.9 mmol/L (3.5-5.1); SODIUM 129 mmol/L (136-145)
[2024-02-27 20:08] LABS: ALBUMIN 4.2 g/dl (3.4-5.0); ANION GAP 14 mmol/L (4-13); BLOOD UREA NITROGEN 59.2 mg/dL (7-18); CO2 19 mmol/L (21-32); GLUCOSE,RANDOM 127 mg/dL (74-106)
[2024-02-27 20:11] LABS: SGOT/AST 38 U/L (15-37); SGPT/ALT 44 U/L (13-61)
[2024-02-27 20:12] LABS: BILIRUBIN,TOTAL 0.6 mg/dL (0.2-1); TOT PROT 6.8 g/dl (6.4-8.2)
[2024-02-27 20:13] LABS: ALK PHOS 123 U/L (45-117)
[2024-02-27 20:16] LABS: CREATININE 9.8 mg/dL (0.55-1.3)
[2024-02-27 20:29] LABS: N-TERMINAL BNP 48441.1 pg/ml (5-125)
[2024-02-27 21:03] LABS: MAGNESIUM 2.3 mg/dL (1.8-2.4)
[2024-02-27 21:07] LABS: PHOSPHOROUS 5.8 mg/dL (2.5-4.9)
[2024-02-27] MEDS ORDERED: DEXAMETHASONE SOD PHOSPHATE 10 MG/1 ML VIAL ONE (21:27)
[2024-02-27] MEDS: REMDESIVIR 200 MG in SODIUM CHLORIDE 250 ML IVPB ONE (22:50)
[2024-02-27] MEDS ORDERED: ONDANSETRON 4 MG/2 ML VIAL IVPUSH PRN (23:52)
[2024-02-28] MEDS ORDERED: DEXAMETHASONE SOD PHOSPHATE 10 MG/1 ML VIAL ONE (00:06)
[2024-02-28] MEDS ORDERED: hydrALAZINE HCL 50 MG TABLET (FP) ONE (00:06)
[2024-02-28] MEDS: DEXAMETHASONE SOD PHOSPHATE 10 MG/1 ML VIAL IVPUSH ONE (00:22)
[2024-02-28] MEDS: hydrALAZINE HCL 50 MG TABLET (FP) PO ONE (00:24)
[2024-02-28] MEDS: ROSUVASTATIN CA 20 MG TABLET PO SCH (00:31)
[2024-02-28] MEDS ORDERED: ACETAMINOPHEN 325 MG TABLET (FP) ONE (01:22)
[2024-02-28] MEDS: ACETAMINOPHEN 325 MG TABLET (FP) PO PRN (01:24)
[2024-02-28 07:09] LABS: INR 1.01 (0.83-1.09); PROTHROMBIN TIME (PATIENT) 11.6 SEC (9.7-13.0)
[2024-02-28] MEDS: hydrALAZINE HCL 50 MG TABLET (FP) PO SCH (07:09)
[2024-02-28 07:11] LABS: ACTIVATED PTT 35.7 SECONDS (25.2-36.5); BASO % 1.1 % (0-2.0); HEMATOCRIT 36.4 % (32.4-45.2); HEMOGLOBIN 12.3 GM/dL (10.7-15.3); LYMPH % 11.9 % (8-40); MCH 32.1 pg (25.7-33.7); MCHC 33.9 g/dl (32.0-36.0); MEAN CELL VOLUME 94.8 fl (80-96); MEAN PLT VOLUME 9.1 fl (7.5-11.1); MONO % 1.6 % (3.8-10.2); NEUT % 85.4 % (42.8-82.8); PLATELET COUNT 125 10^3/uL (134-434); RBC 3.84 M/mm3 (3.60-5.2); RDW 15.5 % (11.6-15.6); WHITE BLOOD COUNT 4.7 K/mm3 (4.0-10.0)
[2024-02-28 07:13] LABS: CHLORIDE 95 mmol/L (98-107); SODIUM 131 mmol/L (136-145)
[2024-02-28 07:14] LABS: CALCIUM 8.9 mg/dL (8.5-10.1)
[2024-02-28 07:15] LABS: ANION GAP 19 mmol/L (4-13); BLOOD UREA NITROGEN 69.9 mg/dL (7-18); CO2 17 mmol/L (21-32); GLUCOSE,RANDOM 109 mg/dL (74-106)
[2024-02-28 07:30] LABS: CREATININE 10.8 mg/dL (0.55-1.3)
[2024-02-28] MEDS: DEXAMETHASONE SOD PHOSPHATE 10 MG/1 ML VIAL IVPUSH SCH (09:26)
[2024-02-28] MEDS: SODIUM ZIRCONIUM CYCLOSILICATE (LOKELMA) 5 GM PACKET PO SCH (09:26)
[2024-02-28] MEDS: CARVEDILOL 25 MG TABLET (FP) PO SCH (09:27)
[2024-02-28] MEDS: SEVELAMER CARBONATE 800 MG TAB (FP) PO SCH (09:27)
[2024-02-28] MEDS: LOSARTAN POTASSIUM 50 MG TABLET PO SCH (09:27)
[2024-02-28] MEDS: amLODIPine BESYLATE 10 MG TABLET (FP) PO SCH (09:27)
[2024-02-28] MEDS ORDERED: SODIUM CHLORIDE 250 ML IV PRN (11:00)
[2024-02-28] MEDS: DULoxetine HCL 20 MG CAPSULE.DR PO SCH (11:29)
[2024-02-28] MEDS: VITAMIN B COMP W-C 1 EA TABLET (NEPHRO-VITE) PO SCH (12:07)
[2024-02-28] MEDS: REMDESIVIR 100 MG in SODIUM CHLORIDE 250 ML IVPB SCH (21:34)
[2024-02-28] MEDS: ROSUVASTATIN CA 10 MG TABLET PO SCH (21:36)
[2024-02-28] MEDS: HEPARIN NA (PORCINE) 5,000 UNITS/ML 1ML VIAL SQ SCH (21:37)
[2024-02-29] MEDS ORDERED: SODIUM CHLORIDE 250 ML IV PRN (10:56)
[2024-03-01 07:39] LABS: HEMATOCRIT 34.1 % (32.4-45.2); HEMOGLOBIN 11.6 GM/dL (10.7-15.3); MCHC 33.9 g/dl (32.0-36.0); MEAN CELL VOLUME 94.4 fl (80-96); MEAN PLT VOLUME 9.2 fl (7.5-11.1); PLATELET COUNT 112 10^3/uL (134-434); RBC 3.61 M/mm3 (3.60-5.2); RDW 14.9 % (11.6-15.6); WHITE BLOOD COUNT 4.9 K/mm3 (4.0-10.0)
[2024-03-01 08:00] LABS: CHLORIDE 96 mmol/L (98-107); POTASSIUM 4.1 mmol/L (3.5-5.1); SODIUM 133 mmol/L (136-145)
[2024-03-01 08:08] LABS: ANION GAP 12 mmol/L (4-13); CALCIUM 8.2 mg/dL (8.5-10.1); CO2 25 mmol/L (21-32)
[2024-03-01 08:09] LABS: BLOOD UREA NITROGEN 69.8 mg/dL (7-18); GLUCOSE,RANDOM 93 mg/dL (74-106)
[2024-03-01] MEDS: HEPARIN NA (PORCINE) 5,000 UNITS/ML 1ML VIAL IVPUSH ONE (08:15)
[2024-03-01] MEDS: hydrALAZINE HCL 50 MG TABLET (FP) PO SCH (13:48)
[2024-03-01 23:55] VITALS: RESP 18
[2024-03-02 16:01] VITALS: BP 166/89; PULSE 67; TEMP 98.8
== END 2024-03-02 17:48 | disposition home or self-care (01) | DRG 177 ==
LOC: JER 18:44 → JERBED 21:17 → J6S 02-28 06:36 → J5S 02-28 13:36 → OBSVTOIN 02-29 11:08
PROVIDERS: ADMIT Internal Medicine; ATTEND Internal Medicine
PROC: XW033E5 Introduction of Remdesivir Anti-infective into Peripheral Vein, Percutaneous Approach, New Technology Group 5 (ICD-10-PCS; principal; 2024-02-27)
PROC: 3E0333Z Introduction of Anti-inflammatory into Peripheral Vein, Percutaneous Approach (ICD-10-PCS; 2024-02-27)
DX: U07.1 COVID-19 (principal); J81.0 Acute pulmonary edema; N18.6 End stage renal disease; I12.0 Hypertensive chronic kidney disease with stage 5 chronic kidney disease or end stage renal disease; E87.1 Hypo-osmolality and hyponatremia; Z99.2 Dependence on renal dialysis; D64.9 Anemia, unspecified; E87.70 Fluid overload, unspecified; R09.02 Hypoxemia; E87.5 Hyperkalemia; E83.39 Other disorders of phosphorus metabolism; R19.7 Diarrhea, unspecified; R53.1 Weakness
CPT/HCPCS: 0241U-QW; 36415; 71045-TC-FY; 80048; 80053; 83735; 83880; 84100; 84484; 85025; 85027; 85610; 85730; 86140; 86803; 87340; 93005; 93010; 99285-25; G0378; J0131; J0248; J1100; J1644